=== PATIENT | female | born 2000 | race Caucasian/White ===

== ENCOUNTER 2019-09-20 01:13 | Emergency (ER) | payer OTHER, SELFPAY ==
[2019-09-20 01:17] VITALS: BP 147/83; PULSE 84; RESP 14; TEMP 36.2; O2SAT 100
--- NOTE | 2019-09-20 02:15 | ED.EAR ---
HPI - Ear Problem General Chief complaint: Ear Stated complaint: ear ache Time Seen by Provider: 09/20/19 02:06 History of Present Illness HPI Narrative: This is a 18-year-old female who presents emergency department with a one-week history of right ear pain. Patient states she was not able to sleep due to the pain this evening. She denies any drainage or changes in her hearing. She denies fever or chills. Denies cough or other cold symptoms. She took ibuprofen 800 mg at approximately 2300. Related Data Home Medications Medication Instructions Recorded Confirmed levonorgestrel-ethinyl estrad tablet 07/07/19 [Lessina] montelukast mg 07/07/19 levonorgestrel-ethinyl estrad tablet 09/20/19 [Lessina] Allergies Allergy/AdvReac Type Severity Reaction Status Date / Time amoxicillin Allergy Unknown Unknown Verified 09/20/19 01:36 Penicillins Allergy Unknown Unknown Verified 09/20/19 01:36 Review of Systems Review of Systems: Narrative: CONSTITUTIONAL: Denies fever, chills, or sweats. EYES: Denies visual changes, redness, or discharge. ENT: Denies rhinorrhea, congestion, sore throat, or dental pain. Reports pain to the right ear. Denies any drainage or changes in hearing. CARDIOVASCULAR: Denies chest pain, palpitations, or edema. RESPIRATORY: Denies cough or dyspnea. SKIN: Denies rash or itching. [facility] Past Medical History Medical History History of PCOS Social History Social History Smoking status: Never smoker Substance use: never Gender identity (if verbalized by the patient): Female Exam Narrative: Exam Narrative: GENERAL: Well-appearing, well-nourished, and in no acute distress. HEAD: Normocephalic, atraumatic. EYES: Sclera anicteric, no drainage. ENT: Nares clear, no rhinorrhea or epistaxis. Mucous membranes moist. Right TM is without erythema or retraction. Bony landmarks are visualized but there is mild bulging of the TM. External auditory canal is without erythema or edema. There is no tenderness with examination. No mastoid tenderness. Left TM normal. NECK: Supple. No cervical lymphadenopathy. CHEST: Clear to auscultation. No respiratory distress. HEART: Regular rate and rhythm. No murmur heard. Normal peripheral pulses. SKIN: Warm, dry, no rash. Course Vital Signs Vital signs: Vital Signs Temperature 36.2 C L 09/20/19 01:17 Pulse Rate 84 09/20/19 01:17 Respiratory Rate 14 09/20/19 01:17 Blood Pressure 147/83 H 09/20/19 01:17 Pulse Oximetry 100 09/20/19 01:17 Temperature 36.2 C L 09/20/19 01:17 Pulse Rate 84 09/20/19 01:17 Respiratory Rate 14 09/20/19 01:17 Blood Pressure 147/83 H 09/20/19 01:17 Pulse Oximetry 100 09/20/19 01:17 Medical Decision Making MDM Narrative Medical decision making narrative: Symptoms are likely due to eustachian tube dysfunction given history of seasonal allergies and pressure-like pain with bulging tympanic membrane in the right ear. There is no fluid or opacity to the right TM and patient has not been experiencing fevers. She has used Flonase in the past but has not restarted it for her seasonal allergies. Plan is to continue Flonase as well as [id number] pain medications and follow-up with primary care provider if symptoms persist. Differential Diagnosis Differential Diagnosis: Otitis media, external otitis media, eustachian tube dysfunction Medical Records Medical records reviewed: Yes I reviewed the patient's medical records. Vital Signs Vital Signs: Vital Signs Temperature 36.2 C L 09/20/19 01:17 Pulse Rate 84 09/20/19 01:17 Respiratory Rate 14 09/20/19 01:17 Blood Pressure 147/83 H 09/20/19 01:17 Pulse Oximetry 100 09/20/19 01:17 Temperature 36.2 C L 09/20/19 01:17 Pulse Rate 84 09/20/19 01:17 Respiratory Rate 14 09/20/19 01:17 Blood Pressure 147/83 H
[2019-09-20 02:25] VITALS: BP 133/88; PULSE 88; RESP 17; O2SAT 97
[2019-09-20] MEDS: ACETAMINOPHEN 500 MG TABLET 1000 MG PO (02:25)
== END 2019-09-20 02:25 | disposition home or self-care (01) ==
DX: H69.91 Unspecified Eustachian tube disorder, right ear (principal); E28.2 Polycystic ovarian syndrome
CPT/HCPCS: 99282; A9270

== ENCOUNTER 2020-05-01 19:58 | Emergency (ER) | payer OTHER, SELFPAY ==
[2020-05-01 20:31] VITALS: BP 145/88; PULSE 99; RESP 16; TEMP 36.5; O2SAT 100
--- NOTE | 2020-05-01 22:08 | ED.GENADULT ---
HPI - General Adult General Chief complaint: Dental/Oral Stated complaint: Toothache Time Seen by Provider: 05/01/20 21:08 Source: patient Mode of arrival: ambulatory Limitations: no limitations History of Present Illness HPI narrative: pt is here for dental pain. She was seen by her dentist and referred to an oral surgeon for extraction of tooth. She is trying to find one that takes her insurance. The tooth is sensitive to cold. No fever but there is sig erythema and mild swelling in the gum. She has been treating pain with ibuprofen. overall significant caries. Onset (ago): day(s) Severity: mild Severity scale (1-10): 1 Pain Consistency: constant Relieving factors: none Treatments prior to arrival: NSAID Related Data Home Medications Medication Instructions Recorded Confirmed levonorgestrel-ethinyl estrad tablet 07/07/19 [Lessina] montelukast mg 07/07/19 Allergies Allergy/AdvReac Type Severity Reaction Status Date / Time amoxicillin Allergy Unknown Unknown Verified 05/01/20 21:08 Penicillins Allergy Unknown Unknown Verified 05/01/20 21:08 Review of Systems Review of Systems: All systems reviewed & are unremarkable except as noted in HPI and below [facility] Past Medical History Medical History (Updated 05/01/20 @ 22:22 by Sarah Westbrook PA-C) History of PCOS Social History Social History Smoking status: Never smoker Substance use: never Gender identity (if verbalized by the patient): Female Exam Const: General: no acute distress and alert Orientation/consciousness: patient oriented x3 HENMT: Teeth and gingiva: abnormal tooth and associated gingiva (caries, erythema and mild swelling of gum, supernummery tooth left lower) Neck: Neck: no lymphadenopathy Resp: Effort & Inspection: normal respiratory effort Cardio: Rate: regular rate Rhythm: regular rhythm Skin: General skin exam: normal color Psych: Appearance: grossly normal Mental Status: mental status grossly normal Course Course Emergency Course: Pts allergy to pcn is a rash. She believes it was when she was a baby. She would prefer clindamycin over keflex as she has taken clinda in the past. Vital Signs Vital signs: Vital Signs Temperature 36.5 C 05/01/20 20:31 Pulse Rate 99 05/01/20 20:31 Respiratory Rate 16 05/01/20 20:31 Blood Pressure 145/88 H 05/01/20 20:31 Pulse Oximetry 100 05/01/20 20:31 Temperature 36.5 C 05/01/20 20:31 Pulse Rate 99 05/01/20 20:31 Respiratory Rate 16 05/01/20 20:31 Blood Pressure 145/88 H 05/01/20 20:31 Pulse Oximetry 100 05/01/20 20:31 Medical Decision Making Vital Signs Vital Signs: Vital Signs Temperature 36.5 C 05/01/20 20:31 Pulse Rate 99 05/01/20 20:31 Respiratory Rate 16 05/01/20 20:31 Blood Pressure 145/88 H 05/01/20 20:31 Pulse Oximetry 100 05/01/20 20:31 Temperature 36.5 C 05/01/20 20:31 Pulse Rate 99 05/01/20 20:31 Respiratory Rate 16 05/01/20 20:31 Blood Pressure 145/88 H 05/01/20 20:31 Pulse Oximetry 100 05/01/20 20:31 Discharge Plan Discharge Clinical Impression: Dental caries, Dental abscess Patient Disposition: Home, Self-Care Condition: Stable Instructions: Antibiotic Form, Dental Abscess (ED) Additional Instructions: Take 600 mg Clindamycin X 1, then 300 mg every 8 hrs for 7 days. Continue to take Ibuprofen for the pain, you may take 600-800 mg every 8 hrs. Please take with food to avoid GI upset. Rinse your mouth 2-3 times a day with 1/2 tsp table salt in 4oz of warm water, rinse and spit. Follow up with oral surgeon at earliest available appointment . You may call the [facility] at [phone] or AT [facility] in [place] at [phone]. Return to ED should you develop fever greate than 100.4, swelling of face or difficutly swallowing. Prescriptions: New clindamycin HCl 300 mg capsule
[2020-05-01 22:46] VITALS: BP 136/85; PULSE 85; RESP 20; TEMP 36.8; O2SAT 98
== END 2020-05-01 22:47 | disposition home or self-care (01) ==
PROVIDERS: Emergency Provider Emergency Medicine
DX: K08.89 Other specified disorders of teeth and supporting structures (principal); K02.9 Dental caries, unspecified
CPT/HCPCS: 99283

== ENCOUNTER 2020-08-13 13:16 | Outpatient (CLI) | payer OTHER, SELFPAY | END 2020-08-13 13:17 | disposition home or self-care (01) | LOC: ANHAUDIO 13:18 | PROVIDERS: PCP Nurse Practitioner; Visit Provider Otolaryngology | DX: H92.09 Otalgia, unspecified ear (principal); H93.8X9 Other specified disorders of ear, unspecified ear | CPT/HCPCS: 92552; 92556; 92567 ==

== ENCOUNTER 2021-07-24 23:24 | Emergency (ER) | payer OTHER, MEDICAID, SELFPAY ==
[2021-07-24 23:26] VITALS: BP 159/118; PULSE 96; RESP 18; TEMP 36.4; O2SAT 100
--- NOTE | 2021-07-24 23:38 | ED.EAR ---
HPI - Ear Problem General Chief complaint: Ear Stated complaint: ear pain Time Seen by Provider: 07/24/21 23:35 Source: RN notes reviewed History of Present Illness HPI Narrative: Patient presents emergency department from home for right ear pain. Patient states pain is been ongoing for the past 3 days pain is in the right ear and does not radiate described as aching in nature denies any pain in the left ear denies any fevers or chills rhinorrhea sore throat cough or any other symptoms. States that she did a telemetry health visit and was started on eardrops yesterday which have not been helping states she has been taking Tylenol and ibuprofen at home with minimal relief Related Data Home Medications Medication Instructions Recorded Confirmed levonorgestrel-ethinyl estrad tablet 07/07/19 04/13/21 [Lessina] montelukast mg 07/07/19 04/13/21 loratadine 10 mg capsule 10 mg PO DAILY 08/05/20 04/13/21 melatonin 5 mg capsule mg PO 08/05/20 04/13/21 Allergies Allergy/AdvReac Type Severity Reaction Status Date / Time amoxicillin Allergy Unknown Unknown Verified 04/13/21 10:42 Penicillins Allergy Unknown Unknown Verified 04/13/21 10:42 Review of Systems Review of Systems: Gen.: Denies fevers or chills Eyes: Denies eye pain or visual change ENT: See HPI Respiratory: Denies shortness of breath or cough CV: Denies chest pain GI: Denies abdominal pain nausea, emesis Musculoskeletal: Denies neck Neuro: Denies headache Skin: Denies rash Except as documented, all other systems reviewed and negative [facility] Past Medical History Medical History (Updated 07/25/21 @ 00:11 by Clive Goyal DO) History of PCOS Family History Family History Father Hypertension Heart problem Sibling Cancer Grandparent Asthma Cancer Heart problem Grandparent Diabetes mellitus Hypertension Heart problem Social History Social History Smoking status: Never smoker Substance use: never Gender identity (if verbalized by the patient): Female Exam Narrative: APPEARANCE: No acute distress, nontoxic, resting in bed EYES: EOMI HEENT: Normocephalic, atraumatic, left TM is normal appearance, nares patent or mucosa moist no erythema exudate posterior pharynx right external ear canal with cerumen present cerumen irrigated out and right TM is erythematous RESPIRATORY: No respiratory distress Clear to auscultation bilaterally with no rhonchi wheezing or rales. CARDIOVASCULAR: Regular rate and rhythm without murmurs rubs or gallops. MUSCULOSKELETAl: Moves all extremities. NEURO: Awake and alert. Following commands, speech normal, no focal deficits SKIN:: Warm, dry. No rashes lesions or abrasions PSYCHIATRIC: Normal affect/mood, Course Course Emergency Course: Patient states she is allergic penicillin does not believe she can take cephalosporins as well states that she also cannot take a Z-Cruz. States that she has had doxycycline before in past with good relief Reviewed old records patient seen by ENT in past has been on doxycycline Discussed with patient results of workup and diagnosis. Discussed need for follow-up with primary care, proper use of medication, and reasons to return to the emergency department. Patient understands and agrees to current treatment plan Vital Signs Vital signs: Vital Signs Temperature 97.6 F 07/24/21 23:26 Pulse Rate 96 07/24/21 23:26 Respiratory Rate 18 07/24/21 23:26 Blood Pressure 159/118 H 07/24/21 23:26 Pulse Oximetry 100 07/24/21 23:26 Temperature 97.6 F 07/24/21 23:26 Pulse Rate 95 07/24/21 23:39 Respiratory Rate 18 07/24/21 23:39 Blood Pressure 165/108 H 07/24/21 23:39 Pulse Oximetry 100 07/24/21 23:39 Medical Decision Making Vital Signs Vital Signs: Vital Signs Temperature 97.6 F 07/24/21 23:26 Pulse Rate 96 07/24/21 23:26 Respi
[2021-07-24 23:39] VITALS: BP 165/108; PULSE 95; RESP 18; O2SAT 100
--- NOTE | 2021-07-25 00:06 | PC.NURSE ---
small amount of white return with ear irrigation
[2021-07-25 00:20] VITALS: BP 139/94; PULSE 89; RESP 18; O2SAT 100
[2021-07-25] MEDS: DOXYCYCLINE HYCLATE 100 MG TABLET PO (00:22)
== END 2021-07-25 00:28 | disposition home or self-care (01) ==
PROVIDERS: Emergency Provider Emergency Medicine; PCP Nurse Practitioner
DX: H66.91 Otitis media, unspecified, right ear (principal); E28.2 Polycystic ovarian syndrome
CPT/HCPCS: 99283; A9270